=== PATIENT | male | born 1950 | race Caucasian/White ===

== ENCOUNTER 2018-11-30 07:29 | Outpatient (CLI) | payer MEDICARE ==
--- NOTE | 2018-11-30 10:14 | CT ---
CT ABDOMEN WITH AND WITHOUT CONTRAST: CT PELVIS WITH AND WITHOUT CONTRAST: (CT UROGRAM) 11/30/2018 HISTORY: A 68-year-old male with right groin, R19.03, right lower quadrant abdominal swelling, mass, and willis mp. Recent hernia repair in April 2018. New right inguinal mass development beginning a few wee ks ago. COMPARISON: None. TECHNIQUE: IV CONTRAST: 100 mL [id number]. Precontrast scan, nephrographic/venous phase scan, and pyelographic/excretory phase scan, performed t hrough entire abdomen and pelvis. Coronal reconstructions of excretory/pyelographic phase scan. FINDINGS: There is an approximately 3 x 3 x 7 cm complex cystic mass in the right inguinal region. It broadly abuts the most inferior right suprapubic portion of the lower abdominal wall, and then travels inferi cj, inseparable from the right spermatic cord. It does not reach the scrotum. Its proximal portion has apparently mildly enhancing septations. There is a small amount of free fluid in the dependent portion of the pelvic cavity, anterior to the rectum. There are no bladder, ureteral, or renal calculi. There are multiple small left parapelvic renal cysts. There is no hydroureteronephrosis bilaterally. The bilateral renal parenchyma have sym metrical, normal, nephrographic enhancement, with no perfusion defects. The urinary bladder is veronica l. No colonic diverticulitis. No small bowel dilation. The abdominal aorta, adrenals, liver, pancr eas, and spleen demonstrate no major pathology. There are cholecystectomy clips in the gallbladder f james. There is a moderately large region of fat stranding, consistent with edema, between the inferior port ion of the right lobe of the liver and the superior portion of the ascending colon. The source of th is edema is uncertain. The adjacent colon does not have mural thickening, and no obvious diverticula are identified in this location. The Stiles pouch is not involved. A normal appendix is visualiz ed, many centimeters distant from this, more medially at the right pelvic inlet. IMPRESSION: 1. Complex cystic mass in the right inguinal region. Given the history, this is probably a seroma. The other possibility would be ascites fluid trapped from previous inguinal hernia. 2. A region of prominent fat stranding, representing edema, in the right side of the abdominal cavit y, between the inferior aspect of the right lobe of the liver and the right colon. The source of thi s is not apparent on this CT. 3. Small amount of free fluid within the dependent portion of the pelvic cavity. POS: [place]
[2018-11-30] MEDS ORDERED: Iopamidol 370 76% 100 ML VIAL ONE (12:42)
== END 2018-11-30 07:30 | disposition home or self-care (01) ==
LOC: CT 07:29
PROVIDERS: ATTEND Surgery
DX: R19.03 Right lower quadrant abdominal swelling, mass and lump (principal)
CPT/HCPCS: 74178; Q9967

== ENCOUNTER 2024-10-01 09:16 | Outpatient (CLI) | payer OTHER | END 2024-10-01 09:17 | disposition home or self-care (01) | LOC: ULT 09:16 | PROVIDERS: ATTEND Internal Medicine Gastroenterology | DX: Z12.11 Encounter for screening for malignant neoplasm of colon (principal); B18.2 Chronic viral hepatitis C; R16.0 Hepatomegaly, not elsewhere classified; Z90.49 Acquired absence of other specified parts of digestive tract | CPT/HCPCS: 76705 ==